=== PATIENT | male | born 1980 | race Caucasian/White ===

== ENCOUNTER 2017-06-14 23:23 | Emergency (ER) | payer SELFPAY ==
--- NOTE | 2017-06-15 00:04 | ED Physician Documentation ---
PD HPI HEENT - Stated complaint Stated Complaint: TOOTHACHE - Chief complaint Chief Complaint: Heent - History obtained from History obtained from: Patient, Family - History of Present Illness Timing - onset: Yesterday Timing - details: Gradual onset, Still present Location: Tooth Worsens: Swalllowing Associated symptoms: Fever, Facial swelling. No: Unable to swallow Similar symptoms before: Work up / diagnostics, Treatment Recently seen: Not recently seen - Additional information Additional information: Patient is a 37 year old male with no significant past medical history who is presenting to the emergency department for facial swelling. patient states that over the last two days his face has become more swollen and painful. Patient states that he had this once in the past. When they called the dentist they stated that the patient would not be able to be seen for about 3 months. Review of Systems Constitutional: reports: Fever. denies: Chills, Myalgias Eyes: denies: Loss of vision, Photophobia Ears: denies: Ear pain, Drainage/discharge Nose: denies: Congestion, Epistaxis Throat: reports: Dental pain / toothache Cardiac: denies: Chest pain / pressure Respiratory: denies: Cough, Wheezing GI: denies: Nausea, Vomiting : denies: Dysuria, Frequency Skin: denies: Rash, Lesions Musculoskeletal: denies: Neck pain, Back pain Neurologic: reports: Reviewed and negative Immunocompromised: denies: Immunocompromised PD PAST MEDICAL HISTORY - Past Medical History Past Medical History: Yes Respiratory: Asthma - Past Surgical History Past Surgical History: Yes General: Appendectomy - Present Medications Home Medications: Ambulatory Orders Medication Instructions Recorded Confirmed Amox/Clav 875/125 [Augmentin] 1 each PO Q12H #14 tablet 06/15/17 Chlorhexidine Gluconate 15 ml MM Q6HR #473 ml 06/15/17 - Allergies Allergies/Adverse Reactions: Allergies Allergy/AdvReac Type Severity Reaction Status Date / Time No Known Drug Allergies Allergy Verified 06/14/17 23:32 - Social History Does the pt smoke?: Yes Smoking Status: Current every day smoker Does the pt drink ETOH?: Yes Does the pt have substance abuse?: Yes - Immunizations Immunizations are current?: No - POLST Patient has POLST: No PD ED PE NORMAL - Vitals Vital signs reviewed: Yes - General General: Alert and oriented X 3, Well developed/nourished - HEENT HEENT: Atraumatic, PERRL, Moist mucous membranes - Neck Neck: Supple, no meningeal sign, No adenopathy - Cardiac Cardiac: RRR, No murmur - Respiratory Respiratory: No respiratory distress - Abdomen Abdomen: Non distended - Derm Derm: Normal color, Warm and dry, No rash - Extremities Extremities: No deformity, No edema - Neuro Neuro: Alert and oriented X 3, No motor deficit, No sensory deficit - Psych Psych: Normal mood PD ED PE EXPANDED - General General: Alert, In Pain - HEENT HEENT: Dental decay, Other (tenderness and swelling of right cheek, no drainable abscess) Results - Vitals Vitals: Vital Signs - 24 hr 06/14/17 06/15/17 23:27 00:27 Temperature 36 C L 36.8 C Heart Rate 84 77 Respiratory 20 24 Rate Blood Pressure 208/125 H 189/107 H O2 Saturation 97 95 Oxygen O2 Source Room air PD MEDICAL DECISION MAKING - ED course Complexity details: reviewed old records, reviewed results, re-evaluated patient , considered differential, d/w patient, d/w family ED course: Patient was seen and examined at bedside. Patient had a developing abscess but there was nothing drainable at this point. patient was started on antibiotics and stable for discharge with outpatient follow up. Departure - Departure Disposition: 01 Home, Self Care Clinical Impression: Dental abscess Condition: Good Instructions: ED Abscess Dental Follow-Up: primary,dentist [Other] - Within 1 week Prescriptions: Chlorhexidine Gluconate 15 ml MM Q6HR #473 ml Amox/Clav 875/125 [Augmentin] 1 each PO Q12H #14 tablet Comments: Your symptoms today are being caused by a dental abscess. You had your first dose of antibiotics tonight and will need to be on it for the next week. You should also use the mouthwash every 6 hours, or at least after every meal. You can take motrin or tylenol as needed for pain. You should still try to follow up with the dentist for more definitive care. Discharge Date/Time: 06/15/17 00:29
[2017-06-15] MEDS: IBUPROFEN 600 MG TABLET PO STA (00:08)
[2017-06-15] MEDS: AMOX/CLAV 875 MG/125 MG TABLET PO STA (00:08)
[2017-06-15] MEDS ORDERED: IBUPROFEN 600 MG TABLET PO ONE (00:09)
[2017-06-15] MEDS ORDERED: AMOX/CLAV 875 MG/125 MG TABLET PO ONE (00:09)
[2017-06-15 00:28] VITALS: BP 189/107
== END 2017-06-15 00:29 | disposition home or self-care (01) ==
LOC: ED 23:23
DX: K04.7 Periapical abscess without sinus (principal); K02.9 Dental caries, unspecified; F17.200 Nicotine dependence, unspecified, uncomplicated
CPT/HCPCS: 99283

== ENCOUNTER 2018-08-01 15:36 | Outpatient (CLI) | payer SELFPAY | END 2018-08-01 15:37 | disposition short-term general hospital (02) | LOC: EMS 15:36 | PROVIDERS: ATTEND Surgery | DX: T14.90XA Injury, unspecified, initial encounter (principal); W11.XXXA Fall on and from ladder, initial encounter | CPT/HCPCS: A0425; A0427 ==

== ENCOUNTER 2018-09-29 11:50 | Emergency (ER) | payer OTHER ==
[2018-09-29 12:03] VITALS: BP 149/104
--- NOTE | 2018-09-29 13:48 | ED Physician Documentation ---
PD HPI UPPER EXT INJURY - Stated complaint Stated Complaint: L SHOULDER PX - Chief complaint Chief Complaint: Ext Problem - History obtained from History obtained from: Patient - History of Present Illness Location: Left, Clavicle Type of injury: Fall (2 months ago, fell about 10 feet onto left shoulder at work. Taken to [place] by EMS and Dx with clavicle fracture. Has been in sling and not healing well. Still with pain on ROM.) Where injury occurred: Work Timing - onset: How many months ago (2) Timing - duration: Months (2) Timing - details: Abrupt onset, Still present Worsened by: Moving, Palpating Associated symptoms: No: Weakness, Numbness, Swelling Similar symptoms before: Has not had sx before Recently seen: Emergency Dept (2 months ago and had not had follow up appt (was referred to Ortho in [place] but he lives here).) Review of Systems Constitutional: denies: Fever, Chills Nose: denies: Rhinorrhea / runny nose, Congestion Throat: denies: Sore throat Respiratory: denies: Cough Skin: denies: Abrasion (s), Laceration (s) Neurologic: denies: Altered mental status, Head injury PD PAST MEDICAL HISTORY - Past Medical History Respiratory: Asthma - Past Surgical History Past Surgical History: Yes General: Appendectomy - Present Medications Home Medications: Ambulatory Orders Medication Instructions Recorded Confirmed Naproxen 500 mg PO BID #20 tablet 09/29/18 Tramadol HCl 50 mg PO Q6H PRN #20 tablet 09/29/18 - Allergies Allergies/Adverse Reactions: Allergies Allergy/AdvReac Type Severity Reaction Status Date / Time No Known Drug Allergies Allergy Verified 09/29/18 12:03 - Social History Does the pt smoke?: Yes Smoking Status: Current every day smoker Does the pt drink ETOH?: Yes Does the pt have substance abuse?: Yes - Immunizations Immunizations are current?: No - POLST Patient has POLST: No PD ED PE NORMAL - Vitals Vital signs reviewed: Yes - General General: Alert and oriented X 3, No acute distress, Well developed/nourished, Other (wearing left arm in a sling) - Neck Neck: Supple, no meningeal sign, No bony TTP - Derm Derm: Normal color, Warm and dry - Extremities Extremities: Other (left clavicle with tenderness and step off with movement at mid clavicle. Pain with ROM of the shoulder and he hurts to go above shoulder height. ) Results - Vitals Vitals: Vital Signs - 24 hr 09/29/18 11:59 Temperature 35.5 C L Heart Rate 87 Respiratory 14 Rate Blood Pressure 149/104 H O2 Saturation 97 Oxygen O2 Source Room air - Rads (name of study) left clavicle Radiology: Prelim report reviewed (some callus formation at end of distal segment of fracture. 2 cm displacement. ) PD MEDICAL DECISION MAKING - ED course Complexity details: reviewed results (nonunion of the fracture, so will refer to Ortho. There is some callus formation but it still feels mobile clinically. ), considered differential (still hurting after 2 months, so will get xray to see the healing.), d/w patient Departure - Departure Disposition: 01 Home, Self Care Clinical Impression: Clavicle fracture Qualifiers: Encounter type: subsequent encounter Clavicle location: shaft Fracture type: closed Fracture alignment: displaced Laterality: left Fracture healing: with nonunion Qualified Code(s): S42.022K - Displaced fracture of shaft of left clavicle, subsequent encounter for fracture with nonunion Condition: Stable Record reviewed to determine appropriate education?: Yes Instructions: ED Fx Clavicle Follow-Up: [facility] [Provider Group] Prescriptions: Naproxen 500 mg PO BID #20 tablet Tramadol HCl 50 mg PO Q6H PRN #20 tablet PRN Reason: Pain Comments: The collarbone has not healed as expected. Follow-up with orthopedics. It might need surgery in order to anchor it together. Continue with the sling and minimal use of the left arm. Add naproxen anti-inflammatory twice daily and add tramadol if needed for pain. Call the orthopedic office Monday for an appointment this coming week Forms: Activity restrictions Discharge Date/Time: 09/29/18 14:36
[2018-09-29] MEDS ORDERED: NAPROXEN 250 MG TABLET PO STA (13:57)
--- NOTE | 2018-09-29 14:24 | XRAY Report ---
Reason: L clavicle pain s/p fracture 2 months ago Procedure Date: 09/29/2018 Accession Number: [id number] / [id number] Procedure: XR - Clavicle LT CPT Code: FULL RESULT: EXAM: LEFT CLAVICLE RADIOGRAPHY EXAM DATE: 09/29/2018 02:08 PM. CLINICAL HISTORY: L clavicle pain s/p fracture 2 months ago. COMPARISON: CHEST 2 VIEW PA/LAT 03/07/2016 6:04 PM. TECHNIQUE: 2 views. FINDINGS: Bones: There is a fracture of the middle third of the left clavicle. The fracture demonstrates approximately 2 cm of displacement. There is callus formation at the fracture site. Joints: No subluxation or dislocation. Soft Tissues: Normal. No soft tissue swelling. IMPRESSION: Healing subacute fracture with 2 cm of displacement of the mid left clavicle. RADIA
== END 2018-09-29 14:36 | disposition home or self-care (01) ==
LOC: ED 11:50
DX: S42.022K Displaced fracture of shaft of left clavicle, subsequent encounter for fracture with nonunion (principal); W17.89XD Other fall from one level to another, subsequent encounter; F17.200 Nicotine dependence, unspecified, uncomplicated
CPT/HCPCS: 73000; 99282; 99283; A9270; 1040M

== ENCOUNTER 2018-10-16 09:16 | Emergency (ER) | payer SELFPAY ==
[2018-10-16 09:26] VITALS: BP 146/88
--- NOTE | 2018-10-16 09:44 | ED Physician Documentation ---
History of Present Illness - Stated complaint Stated Complaint: FLU LIKE SX - Chief complaint Chief Complaint: General - History obtained from History obtained from: Patient - History of Present Illness Timing: Last night - Additonal information Additional information: Patient is a 38-year-old male presenting with generalized muscle aches, subjective fever, nasal congestion without rhinorrhea, sinus pressure and headache, as well as cough since yesterday. Patient denies significant difficulty breathing, chest pain, abdominal pain, or ear pain. No worsening or improving factors noted. Review of Systems Constitutional: reports: Fever Ears: denies: Ear pain Nose: reports: Congestion. denies: Rhinorrhea / runny nose PD PAST MEDICAL HISTORY - Past Medical History Past Medical History: Yes Respiratory: Asthma - Past Surgical History Past Surgical History: Yes General: Appendectomy - Present Medications Home Medications: Ambulatory Orders Medication Instructions Recorded Confirmed Naproxen 500 mg PO BID #20 tablet 09/29/18 Tramadol HCl 50 mg PO Q6H PRN #20 tablet 09/29/18 Oseltamivir [Tamiflu] 75 mg PO BID #10 capsule 10/16/18 - Allergies Allergies/Adverse Reactions: Allergies Allergy/AdvReac Type Severity Reaction Status Date / Time No Known Drug Allergies Allergy Verified 09/29/18 12:03 - Social History Does the pt smoke?: Yes Smoking Status: Current every day smoker Does the pt drink ETOH?: Yes Does the pt have substance abuse?: Yes - Immunizations Immunizations are current?: No - POLST Patient has POLST: No PD ED PE NORMAL - General General: Alert and oriented X 3, No acute distress, Well developed/nourished - HEENT HEENT: Atraumatic, EOMI, Moist mucous membranes, Pharynx benign, Other (Tenderness to palpation of frontal and maxillary sinuses). No: Ears normal (Mild TM bulging and erythema bilaterally without effusion present) - Cardiac Cardiac: RRR, No murmur - Respiratory Respiratory: No respiratory distress, Clear bilaterally - Abdomen Abdomen: Normal bowel sounds, Soft, Non tender, Non distended - Derm Derm: Normal color, Warm and dry, No rash - Neuro Neuro: Alert and oriented X 3, No motor deficit, No sensory deficit - Psych Psych: Normal mood, Normal affect Results - Vitals Vitals: Vital Signs - 24 hr 10/16/18 09:25 Temperature 37.7 C H Heart Rate 104 H Respiratory 18 Rate Blood Pressure 146/88 H O2 Saturation 96 Oxygen O2 Source Room air - Labs Labs: Laboratory Tests 10/16/18 09:25 Influenza A (Rapid) POSITIVE H Influenza B (Rapid) Negative PD MEDICAL DECISION MAKING - ED course Complexity details: reviewed results, re-evaluated patient, considered differential, d/w patient ED course: Most concerning for influenza, viral illness, sinusitis, URI given constellation of symptoms and physical exam findings. Have lower suspicion for otitis media, otitis externa, mastoiditis, peritonsillar abscess, Tonsillitis, pharyngitis, pneumonia, intra-abdominal pathology, cardiac pathology, renal pathology, but considered. Do not feel patient requires invasive testing or imaging at this time, but did obtain a flu swab.Flu swab returned positive and feel appropriate to treat with Tamiflu as patient is still within the window of treatment for such and his symptoms are consistent with this disease process as well. Advised patient of results and recommendations, supportive cares, use medications, follow-up, return precautions. Patient voiced understanding and is comfortable with discharge plan. Departure - Departure Disposition: 01 Home, Self Care Clinical Impression: Influenza A Condition: Good Instructions: ED Flu Follow-Up: your,doctor [Other] - Within 3 Days Prescriptions: Oseltamivir [Tamiflu] 75 mg PO BID #10 capsule Comments: Please take Tamiflu as prescribed for influenza. Also recommend supportive care such as ibuprofen/Tylenol, hydration, rest, and follow-up with your primary care physician in next 2-3 days. Please be aware of good hand hygiene and spreading of disease. Please do not attend work or other functions from a lot of people until you have been without a fever for 24 hours. Return to ED sooner if explains worsening symptoms or other concerns.
== END 2018-10-16 11:09 | disposition home or self-care (01) ==
LOC: ED 09:16
DX: J10.89 Influenza due to other identified influenza virus with other manifestations (principal); F17.200 Nicotine dependence, unspecified, uncomplicated
CPT/HCPCS: 87275; 87276; 99283

== ENCOUNTER 2019-02-27 20:13 | Emergency (ER) | payer OTHER ==
[2019-02-27] MEDS ORDERED: SODIUM CHLORIDE 0.9% 1,000 ML IV ONE (21:14)
[2019-02-27] MEDS ORDERED: KETOROLAC 30 MG/ML VIAL IVP STA (21:14)
[2019-02-27] MEDS ORDERED: DEXAMETHASONE 10 MG/ML VIAL IVP STA (21:14)
[2019-02-27] MEDS ORDERED: cefTRIAXone 1 GM in SODIUM CHLORIDE 0.9% MINIBAG 100 ML IV STA (21:14)
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
[2019-02-27 21:33] LABS: BASOPHILS % (AUTO) 0.3 %; EOSINOPHILS # (AUTO) 0.2 10^3/uL (0.0-0.7); EOSINOPHILS % (AUTO) 1.7 %; HGB - HEMOGLOBIN 12.9 g/dL (14.0-18.0); LYMPHOCYTES # (AUTO) 3.3 10^3/uL (1.5-3.5); LYMPHOCYTES % (AUTO) 34.2 %; MEAN CORPUSCULAR HEMOGLOBIN 26.5 pg (27.0-31.0); MEAN CORPUSCULAR HGB CONC 31.8 g/dL (32.0-36.0); MEAN CORPUSCULAR VOLUME 83.5 fL (80.0-94.0); MEAN PLATELET VOLUME 10.4 fL (7.4-11.4); MONOCYTES # (AUTO) 1.1 10^3/uL (0.0-1.0); MONOCYTES % (AUTO) 10.7 %; NEUTROPHILS # (AUTO) 5.2 10^3/uL (1.5-6.6); NEUTROPHILS % (AUTO) 52.8 %; PLT - PLATELET COUNT 237 10^3/uL (130-450); RED BLOOD COUNT 4.86 10^6/uL (4.70-6.10); RED CELL DISTRIBUTION WIDTH 13.2 % (12.0-15.0); WHITE BLOOD COUNT 9.8 x10^3/uL (4.8-10.8)
[2019-02-27 21:49] LABS: ALBUMIN 3.8 g/dL (3.2-5.5); ALBUMIN/GLOBULIN RATIO 1.2 (1.0-2.2); BILIRUBIN,TOTAL 0.5 mg/dL (0.2-1.0); CALCIUM 9.3 mg/dL (8.5-10.3); CREATININE 0.5 mg/dL (0.6-1.2)
--- NOTE | 2019-02-27 22:08 | XRAY Report ---
Reason: cough chest pain Procedure Date: 02/27/2019 Accession Number: [id number] / [id number] Procedure: XR - Chest 2 View X-Ray CPT Code: 58907 FULL RESULT: EXAM: CHEST RADIOGRAPHY EXAM DATE: 02/27/2019 09:48 PM. CLINICAL HISTORY: Cough, chest pain. COMPARISON: CLAVICLE LT 11/19/2018 1:56 PM CLAVICLE LT 12/18/2018 9:11 AM CLAVICLE LT 09/29/2018 2:04 PM CHEST 2 VIEW PA/LAT 03/07/2016 6:04 PM. TECHNIQUE: 2 views. FINDINGS: Lungs/Pleura: Lung volumes are small. There is accentuation of the pulmonary vascularity as well as interstitial markings. There is mild pulmonary venous congestion seen on this examination. No pulmonary consolidation noted. No pneumothorax or significant effusion noted. Mediastinum: Borderline enlargement of the cardiac silhouette is present. 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 Multilevel degenerative changes of the spine. Laterally located fracture of the left sixth rib. IMPRESSION: 1. Mild CHF pattern, artifact or accentuated secondary to small lung volumes. 2. No pulmonary consolidation noted. RADIA
[2019-02-27 22:55] VITALS: BP 133/73
== END 2019-02-27 23:08 | disposition home or self-care (01) ==
LOC: ED 20:13
DX: M94.0 Chondrocostal junction syndrome [Tietze] (principal); H66.93 Otitis media, unspecified, bilateral; J03.90 Acute tonsillitis, unspecified; F17.200 Nicotine dependence, unspecified, uncomplicated; S42.022K Displaced fracture of shaft of left clavicle, subsequent encounter for fracture with nonunion; S22.32XD Fracture of one rib, left side, subsequent encounter for fracture with routine healing; V49.9XXD Car occupant (driver) (passenger) injured in unspecified traffic accident, subsequent encounter
CPT/HCPCS: 36415; 71046; 80053; 83690; 84484; 85025; 93005; 96361; 96365; 96375; 99284

== ENCOUNTER 2019-03-16 10:30 | Outpatient (CLI) | payer OTHER ==
--- NOTE | 2019-03-18 14:42 | CT Report ---
Reason: FRACTURE OF UNSPEC PART OF LEFT CLAVICLE Procedure Date: 03/16/2019 Accession Number: [id number] / [id number] Procedure: CT - UPPER EXTREMITY WO - LT CPT Code: FULL RESULT: EXAM: LEFT ELBOW CT WITHOUT CONTRAST EXAM DATE: 03/16/2019 10:53 AM. CLINICAL HISTORY: FRACTURE OF UNSPEC PART OF LEFT CLAVICLE. COMPARISON: CLAVICLE LT 09/29/2018 2:04 PM CHEST 2 VIEW 02/27/2019 9:41 PM. TECHNIQUE: Thin-section axial images were acquired of the elbow without contrast. Post-processing: Coronal and sagittal reformats. Other: None. In accordance with CT protocol optimization, one or more of the following dose reduction techniques were utilized for this exam: automated exposure control, adjustment of mA and/or KV based on patient size, or use of iterative reconstructive technique. FINDINGS: As was seen on the prior radiographs there is a comminuted fracture of the midshaft of the left clavicle. Extensive callus is present at the fracture margins and there is early bony bridging present across the fracture. Though the fracture does not yet appear solidly united, the findings are consistent with fracture healing. Deformity of the midshaft of the left clavicle related to the fracture is unchanged. As was seen on the prior studies the distal end of the proximal clavicular fracture fragment is displaced cranially in relation to the proximal end of the distal fragment and there is a small butterfly fragment at the inferior margin of the fracture. Sternoclavicular and acromioclavicular alignment are anatomic. Remaining osseous structures are unremarkable. Visible soft tissues are unremarkable. IMPRESSION: Partially healed moderately displaced mildly comminuted midshaft left clavicle fracture. RADIA
== END 2019-03-16 10:31 | disposition home or self-care (01) ==
LOC: DI 10:30
PROVIDERS: ATTEND Orthopaedic Surgery Sports Medicine
DX: S42.022A Displaced fracture of shaft of left clavicle, initial encounter for closed fracture (principal)

== ENCOUNTER 2020-01-10 15:44 | Emergency (ER) | payer SELFPAY ==
[2020-01-10 15:56] VITALS: BP 143/81
--- NOTE | 2020-01-10 16:04 | ED Physician Documentation ---
PD HPI LOWER EXT INJURY - Stated complaint Stated Complaint: LT LEG SWELLING - Chief complaint Chief Complaint: Ext Problem - History obtained from History obtained from: Patient (History obtained using historical interpreter tablet [id number]) - History of Present Illness PD HPI LOW EXT INJURY LOCATION: Left (Without specific injury this gentleman has had about a month worth of tenderness of the area on the left anterior christie with redness there. No fevers.) Review of Systems Constitutional: denies: Fever, Chills, Fatigue Cardiac: denies: Chest pain / pressure, Palpitations Respiratory: denies: Dyspnea, Cough PD PAST MEDICAL HISTORY - Past Medical History Respiratory: Asthma - Past Surgical History Past Surgical History: Yes General: Appendectomy - Present Medications Home Medications: Ambulatory Orders Medication Instructions Recorded Confirmed Cephalexin [Keflex] 500 mg PO Q6H #40 capsule 01/10/20 - Allergies Allergies/Adverse Reactions: Allergies Allergy/AdvReac Type Severity Reaction Status Date / Time tramadol Allergy Unknown Verified 01/10/20 15:50 - Social History Does the pt smoke?: Yes Smoking Status: Current every day smoker Does the pt drink ETOH?: Yes Does the pt have substance abuse?: Yes - Immunizations Immunizations are current?: No - POLST Patient has POLST: No PD ED PE NORMAL - Vitals Vital signs reviewed: Yes - General General: Alert and oriented X 3, No acute distress - HEENT HEENT: PERRL, EOMI - Extremities Extremities: Other (There is an area of cellulitis and swelling on the left anterior lateral christie, no evidence of abscess. No significant calf tenderness but there is some slight asymmetry of the legs with the left being larger than the right.) - Neuro Neuro: Alert and oriented X 3, Normal speech Results - Vitals Vitals: Vital Signs - 24 hr 01/10/20 15:51 Temperature 36.8 C Heart Rate 89 Respiratory 20 Rate Blood Pressure 143/81 H O2 Saturation 94 Oxygen O2 Source Room air - Labs Labs: Laboratory Tests 01/10/20 16:30 POC Whole Bld Glucose 104 H PD MEDICAL DECISION MAKING - ED course ED course: 39-year-old gentleman with cellulitis of the left lower extremity, DVT is considered and an ultrasound was done but negative for same. He does not have primary care nor does he see a doctor, and given his size and an infectious issue fingerstick blood sugar was checked to evaluate for diabetes but was close to normal. Departure - Departure Disposition: Home, Self Care Clinical Impression: Cellulitis Qualifiers: Site of cellulitis: extremity Site of cellulitis of extremity: lower extremity Laterality: left Qualified Code(s): L03.116 - Cellulitis of left lower limb Condition: Good Record reviewed to determine appropriate education?: Yes Instructions: Cellulitis Dc Prescriptions: Cephalexin [Keflex] 500 mg PO Q6H #40 capsule Print Language: Japanese Comments: We did an ultrasound of your leg to made to make sure there was no blood clots, it was negative, you do have what is called cellulitis, this is an infection of the skin in that area. It should get better rapidly after a few days of antibiotics. Make sure to take the antibiotics until they are gone. Your blood sugar was checked to make sure you do not have diabetes, it was 104 which is fine. Return for new or worsening symptoms. Hicimos un ultrasonido de michaels pierna para asegurarnos de que no hubiera cogulos de nabila, fue negativo, usted tiene lo que se llama celulitis, esta es chari infe ccin de la piel en ari tobi. Debera mejorar rpidamente despus de unos acosta de antibiticos. Asegrese de [place] los antibiticos hasta que se vayan. Se mauricio michaels nivel de azcar en la nabila para asegurarse de que no tiene diabetes, fue 104, lo cual est grace. Regrese por sntomas nuevos o que empeoran.
[2020-01-10] MEDS ORDERED: cephALEXin 250 MG CAPSULE PO STA (16:55)
--- NOTE | 2020-01-10 17:13 | Ultrasound Report ---
PROCEDURE: Duplex Ext Veins Left INDICATIONS: lle pain TECHNIQUE: Real-time imaging, as well as color and pulse Doppler interrogation, were performed of the lower extr emity deep veins from the inguinal ligament to the popliteal fossa. COMPARISON: None. FINDINGS: The deep veins are normally compressible, and free of intraluminal thrombus. Color and pu lse Doppler demonstrate normal phasic intraluminal flow. There is normal augmentation response to di stal compression mild soft tissue edema. IMPRESSION: No deep venous thrombosis. Reviewed by: Lotus Lozoya MD on 01/10/2020 5:12 PM PDT Approved by: Lotus Lozoya MD on 01/10/2020 5:12 PM PDT Station ID: [id number]
== END 2020-01-10 17:25 | disposition home or self-care (01) ==
LOC: ED 15:44
DX: L03.116 Cellulitis of left lower limb (principal); F17.200 Nicotine dependence, unspecified, uncomplicated
CPT/HCPCS: 93971; 99284; A9270

== ENCOUNTER 2020-01-30 08:36 | Emergency (ER) | payer SELFPAY ==
--- NOTE | 2020-01-30 09:17 | ED Physician Documentation ---
History of Present Illness - Stated complaint Stated Complaint: LT LEG SWELLING - Chief complaint Chief Complaint: Ext Problem - History obtained from History obtained from: Patient - History of Present Illness Timing: How many days ago (2) - Additonal information Additional information: 39-year-old male was treated in the emergency department for cellulitis on the of this month. December. He was treated with a 10-day course of cephalexin. The patient indicates he took the medication and symptoms resolved and now over the past 2 days a red color has come out on his anterior calf. This is slightly different color than previously and the swelling is not as great as it was previously. He has not had a fever he has not had vomiting or diarrhea. Review of Systems Constitutional: denies: Fever Nose: denies: Congestion Throat: denies: Sore throat Respiratory: denies: Dyspnea, Cough GI: denies: Vomiting, Diarrhea PD PAST MEDICAL HISTORY - Past Medical History Respiratory: Asthma - Past Surgical History Past Surgical History: Yes General: Appendectomy - Present Medications Home Medications: Ambulatory Orders Medication Instructions Recorded Confirmed Amox/Clav 875/125 [Augmentin] 1 each PO Q12H #20 tablet 01/30/20 - Allergies Allergies/Adverse Reactions: Allergies Allergy/AdvReac Type Severity Reaction Status Date / Time tramadol Allergy Unknown Verified 01/30/20 08:46 - Social History Does the pt smoke?: Yes Smoking Status: Current every day smoker Does the pt drink ETOH?: Yes Does the pt have substance abuse?: Yes - Immunizations Immunizations are current?: No - POLST Patient has POLST: No PD ED PE NORMAL - Vitals Vital signs reviewed: Yes (Hypertensive mild) - General General: Alert and oriented X 3, No acute distress, Well developed/nourished - HEENT HEENT: Atraumatic, PERRL, EOMI - Respiratory Respiratory: No respiratory distress - Derm Derm: Normal color, Warm and dry - Extremities Extremities: No deformity, No calf tenderness / cord, Other (There is erythema to the anterior right calf consistent with cellulitis. There is mild swelling erythema is blanching the distal neurovascular components are intact.) - Neuro Neuro: Alert and oriented X 3, civil lawyer 2-12 intact, No motor deficit, No sensory deficit, Normal speech Eye Opening: Spontaneous Motor: Obeys Commands Verbal: Oriented GCS Score: 15 - Psych Psych: Normal mood, Normal affect Results - Vitals Vitals: Vital Signs - 24 hr 01/30/20 08:42 Temperature 36.2 C L Heart Rate 85 Respiratory 16 Rate Blood Pressure 148/62 H O2 Saturation 97 Oxygen O2 Source Room air PD MEDICAL DECISION MAKING - ED course Complexity details: considered differential, d/w patient ED course: 39-year-old male who does some work on his knees has developed some cellulitis in the left calf. This is a recurrence of a recent infection. He was treated successfully with Keflex and appeared to improve. Today he is treated with IM ceftriaxone and we will place him on Augmentin. Departure - Departure Disposition: Home, Self Care Clinical Impression: Cellulitis Qualifiers: Site of cellulitis: extremity Site of cellulitis of extremity: lower extremity Laterality: left Qualified Code(s): L03.116 - Cellulitis of left lower limb Condition: Stable Instructions: ED Infec Skin Cellulitis Follow-Up: PITA SMITH MD [Primary Care Provider] - Prescriptions: Amox/Clav 875/125 [Augmentin] 1 each PO Q12H #20 tablet Print Language: Prydeinig
[2020-01-30] MEDS ORDERED: cefTRIAXone 1 GM VIAL IM STA (09:23)
[2020-01-30] MEDS ORDERED: LIDOCAINE 1% 2 ML VIAL MC ONE (09:23)
[2020-01-30 10:01] VITALS: BP 135/77
== END 2020-01-30 10:00 | disposition home or self-care (01) ==
LOC: ED 08:36
DX: L03.116 Cellulitis of left lower limb (principal); F17.200 Nicotine dependence, unspecified, uncomplicated
CPT/HCPCS: 96372; 99283; 99284

== ENCOUNTER 2020-03-25 13:38 | Emergency (ER) | payer SELFPAY ==
[2020-03-25] MEDS ORDERED: cefTRIAXone 1 GM VIAL IM STA (14:53)
[2020-03-25] MEDS ORDERED: LIDOCAINE 1% 2 ML VIAL MC ONE (14:53)
--- NOTE | 2020-03-25 14:55 | ED Physician Documentation ---
History of Present Illness - Stated complaint Stated Complaint: LT LEG PX - Chief complaint Chief Complaint: Ext Problem - History obtained from History obtained from: Patient - History of Present Illness Timing: How many weeks ago (2) - Additonal information Additional information: 39-year-old male who has had cellulitis in his left leg several times this year has developed symptoms again about a week and a half ago. He is having some increased redness and swelling and tenderness to his anterior calf as well as his knee. Review of Systems Constitutional: reports: Fatigue. denies: Fever Eyes: denies: Decreased vision Ears: denies: Ear pain Nose: denies: Congestion Throat: denies: Sore throat Cardiac: denies: Chest pain / pressure, Palpitations Respiratory: denies: Dyspnea, Cough GI: denies: Abdominal Pain, Nausea, Vomiting, Constipation, Diarrhea : denies: Dysuria Skin: reports: Rash Musculoskeletal: reports: Extremity pain, Extremity swelling Neurologic: denies: Generalized weakness, Focal weakness, Numbness PD PAST MEDICAL HISTORY - Past Medical History Past Medical History: Yes Respiratory: Asthma - Past Surgical History Past Surgical History: Yes General: Appendectomy - Present Medications Home Medications: Ambulatory Orders Medication Instructions Recorded Confirmed Amox/Clav 875/125 [Augmentin] 1 each PO Q12H #20 tablet 01/30/20 Amox/Clav 875/125 [Augmentin] 1 each PO Q12H #20 tablet 03/25/20 - Allergies Allergies/Adverse Reactions: Allergies Allergy/AdvReac Type Severity Reaction Status Date / Time tramadol Allergy Unknown Verified 03/25/20 14:01 - Social History Does the pt smoke?: Yes Smoking Status: Current every day smoker Does the pt drink ETOH?: Yes Does the pt have substance abuse?: Yes - Immunizations Immunizations are current?: No - POLST Patient has POLST: No PD ED PE NORMAL - Vitals Vital signs reviewed: Yes (normal ) - General General: No acute distress, Well developed/nourished - HEENT HEENT: Atraumatic, PERRL, EOMI - Respiratory Respiratory: No respiratory distress - Derm Derm: Normal color, Warm and dry - Extremities Extremities: No deformity, Other (There is dry lichenified skin to the medial aspect of the left calf and erythema to the anterior portion of the calf with some swelling and tenderness. The erythema is blanching and the distal neurovascular components are intact. There is swelling to the prepatellar area on the left as well and th) - Neuro Neuro: slide developer 2-12 intact, No motor deficit, No sensory deficit, Normal speech Eye Opening: Spontaneous Motor: Obeys Commands Verbal: Oriented GCS Score: 15 - Psych Psych: Normal mood, Normal affect Results - Vitals Vitals: Vital Signs - 24 hr 03/25/20 13:50 Temperature 36.1 C L Heart Rate 92 Respiratory 18 Rate Blood Pressure 120/69 O2 Saturation 95 Oxygen O2 Source Room air PD MEDICAL DECISION MAKING - ED course Complexity details: reviewed old records, considered differential, d/w patient ED course: 39-year-old male with recurrent cellulitis to the left anterior calf is administered Rocephin 1 g IM and we will place him this time on Augmentin. Departure - Departure Disposition: 01 Home, Self Care Clinical Impression: Cellulitis Qualifiers: Site of cellulitis: extremity Site of cellulitis of extremity: lower extremity Laterality: left Qualified Code(s): L03.116 - Cellulitis of left lower limb Condition: Stable Instructions: ED Infec Skin Cellulitis Follow-Up: PITA SMITH MD [Primary Care Provider] - Prescriptions: Amox/Clav 875/125 [Augmentin] 1 each PO Q12H #20 tablet
[2020-03-25 15:42] VITALS: BP 122/74
== END 2020-03-25 15:15 | disposition home or self-care (01) ==
LOC: ED 13:38
DX: L03.116 Cellulitis of left lower limb (principal); F17.200 Nicotine dependence, unspecified, uncomplicated
CPT/HCPCS: 96372; 99283; 99284